=== PATIENT | male | born 1935 | race Caucasian/White ===

== ENCOUNTER → 2019-12-07 | Outpatient (CLI) | payer OTHER ==
[~2019-12-07] MED LIST: TAMS.4ER
== END | disposition home or self-care (01) ==
LOC: PLD 13:05 → LAB SHORT 13:05
DX: D22.5 Melanocytic nevi of trunk (principal)
CPT/HCPCS: 88305

== ENCOUNTER → 2020-06-05 | Outpatient (CLI) | payer OTHER | LOC: LAB SHORT 10:27 → PLD 10:27 | DX: D48.5 Neoplasm of uncertain behavior of skin (principal) | CPT/HCPCS: 88305 ==

== ENCOUNTER 2020-08-31 05:46 | Day surgery (SDC) | payer OTHER ==
[~2020-08-31] VITALS: Ht 188 cm; Wt 84.0 kg
[~2020-08-31 05:46] MED LIST changes: +ALBU90OI INH; +ASPI81CH PO; +ATOR20 PO; +Amlodipine Bes2.5 MG PO; +THYROID30 MG PO
--- NOTE | 2020-08-31 14:14 | NUR ---
REPORT CALLED TO JACKIE REPORT CALLED TO JACKIE. SBAR GIVEN TO TRENT PIEDRA FOR ROOM 4410. TRANSFER PACKET READY FOR TRANSPORT.
--- NOTE | 2020-08-31 14:26 | NUR ---
TRANSFER EDROY TRANSFER TO TAKE PATIENT TO [facility]. R RADIAL SITE CDI-NO HEMATOMA NOTED. VSS. TRANSFER PACKET AND CD SENT WITH EDROY. PT A&OX3 AND DENIED ANY PAIN AT THIS TIME. IV SALINE LOCKED. ALL PATIENTS BELONGING SENT WITH TRANSPORT. SBAR GIVEN TO EDROY TRANSFER.
--- NOTE | 2020-08-31 14:32 | NUR ---
[facility] RIDE HERE, PT TRANSFERRED TO Christine GONZALEZ WRIST ACCESS SITE STABLE, BELONGINGS SENT W PT ALONG WITH CHART FOLDER/DVD.
--- NOTE | 2020-08-31 14:37 | NUR ---
JACKIE NEWMAN RN NOTIFIED PATIENT IN TRANSPORT TO [facility].
== END 2020-08-31 15:28 | disposition short-term general hospital (02) ==
LOC: MHTC 05:46
DX: I25.119 Atherosclerotic heart disease of native coronary artery with unspecified angina pectoris (principal); I10 Essential (primary) hypertension; E78.00 Pure hypercholesterolemia, unspecified; I65.23 Occlusion and stenosis of bilateral carotid arteries; Z95.5 Presence of coronary angioplasty implant and graft; Z95.0 Presence of cardiac pacemaker; Z79.82 Long term (current) use of aspirin
CPT/HCPCS: 76937; 85347; 93005; 93010; 93454; 99152; A9270; C1769; C1894; J1644; J2250; J3010; J7030; J7050; Q9967

== ENCOUNTER → 2021-02-15 | Outpatient (CLI) | payer OTHER | END | disposition home or self-care (01) | LOC: LAB 10:46 → LAB SHORT 10:46 | DX: K12.0 Recurrent oral aphthae (principal) | CPT/HCPCS: 87070; 87205 ==

== ENCOUNTER → 2021-02-18 | Outpatient (CLI) | payer OTHER ==
[2021-02-18 13:47] LABS: BASOPHILS ABSOLUTE AUTO 0.04 K/mm3 (0.00-0.23); BASOPHILS PERCENT AUTO 1 % (0-2); EOSINOPHILS ABSOLUTE AUTO 0.06 K/mm3 (0.00-0.68); EOSINOPHILS PERCENT AUTO 1 % (0-6); Hematocrit 47.4 % (37.0-53.0); IMMATURE GRAN ABSOLUTE AUTO 0.01 K/mm3 (0.00-0.10); IMMATURE GRAN PERCENT AUTO 0 % (0-1); LYMPHOCYTES ABSOLUTE AUTO 2.36 K/mm3 (0.84-5.20); LYMPHOCYTES PERCENT AUTO 32 % (21-46); MONOCYTES ABSOLUTE AUTO 0.63 K/mm3 (0.16-1.47); MONOCYTES PERCENT AUTO 9 % (4-13); Mean Corpuscular HGB 32.8 pg (26.0-34.0); Mean Corpuscular HGB Conc 33.8 g/dL (31.5-36.5); Mean Corpuscular Volume 97 fL (80-100); Mean Platelet Volume 10.9 fL (9.1-12.4); NEUTROPHILS ABSOLUTE AUTO 4.25 K/mm3 (1.96-9.15); NEUTROPHILS PERCENT AUTO 58 % (41-73); Platelet Count 149 K/mm3 (150-400); RDW Coefficient Variation 12.6 % (11.7-14.2); RDW Standard Deviation 45.3 fL (35.1-46.3); Red Blood Cell Count 4.88 M/mm3 (4.30-5.90); White Blood Cell Count 7.35 K/mm3 (4.00-11.30)
[2021-02-18 13:58] LABS: Alanine Aminotransfer (ALT/SGP 22 U/L (12-78); Albumin, Blood 4.1 g/dL (3.4-5.0); Albumin/Globulin Ratio 0.9 (0.8-1.8); Alk Phos 64 U/L (40-126); Anion Gap 9 mmol/L (6-16); Aspartate Aminotrans (AST/SGOT 20 U/L (12-37); Blood Urea Nitrogen 21 mg/dL (8-24); Bun/Creatinine Ratio 18.6 (12.0-20.0); CO2, Blood 30 mmol/L (21-32); Calcium, Blood 9.2 mg/dL (8.5-10.1); Chloride, Blood 99 mmol/L (98-108); Creatinine, Blood 1.13 mg/dL (0.60-1.20); Globulin, Blood 4.4 g/dL (2.2-4.0); Glomerular Filtration Rate >60 (60-); Glucose, Blood 95 mg/dL (70-99); Potassium, Blood 4.4 mmol/L (3.5-5.5); Sodium, Blood 138 mmol/L (136-145); Total Protein, Blood 8.5 g/dL (6.4-8.2)
== END | disposition home or self-care (01) ==
LOC: LAB SHORT 13:43
PROVIDERS: General Practice
DX: R53.81 Other malaise (principal)
CPT/HCPCS: 80053; 85025

== ENCOUNTER 2021-09-05 06:06 | Day surgery (SDC) | payer OTHER ==
[~2021-09-05] VITALS: Ht 188 cm; Wt 83.0 kg
[~2021-09-05 06:06] MED LIST changes: +ATOR40TA PO; -TAMS.4ER; +TAMS.4ER PO; +VITAMIN C 500500 MG PO; +VITAMIN D325 MC3 PO
[2021-09-05] MEDS ORDERED: CLOP75 PO (06:22)
--- NOTE | 2021-09-05 08:35 | NUR ---
PT TO RECOVERY ROOM POST PROCEUDRE. PT AWKAE AND CONVERSING APPROPRIATELY; DENIES PAIN POST PROCEDURE. MONITOR PACED RHYTHM, B/P 161/90, AFEBRILE, SPO2 97% RA. L CHEST-PACEMAKER SITE NO SWELLING/HEMATOMA, TELFA AND TEGADERM DRSG INTACT; PRESSURE DRSG IN PLACE.
--- NOTE | 2021-09-05 08:46 | NUR ---
PATIENT TAKEN TO XRAY DEPARTMENT VIA [facility] FOR PST PACER LEAD IMPLANT IMAGE.
--- NOTE | 2021-09-05 08:55 | NUR ---
PT RETURNED FROM X RAY.
--- NOTE | 2021-09-05 12:10 | NUR ---
DR SALEEM HERE TO EVALUATE PT, PRESSURE DRSG REMOVED-OK TO DISCHARGE PT.
--- NOTE | 2021-09-05 12:45 | NUR ---
PT AMB TO BATHROOM, SITE WITHOUT SWELLING/HEMATOMA; PT'S GAIT STEADY.
--- NOTE | 2021-09-05 12:50 | NUR ---
PT DRESSED WITHOUT ASSITANCE, SITE WITHOUT SWELLING/HEMATOMA, DRSG INTACT; IV REMOVED-CANNULA INTACT. PT'S L ARM PLACED IN SLING.
--- NOTE | 2021-09-05 12:53 | NUR ---
PT RECEIVED DISCHARGE INSTRUCTIONS, MED LIST AND AFTER CARE INSTRUCTIONS; VERBALIZED GOOD UNDERSTANDING. PT LEFT FACILITY VIA W/C, CONDITION STABLE.
== END 2021-09-05 12:53 | disposition home or self-care (01) ==
LOC: MHTC 06:06
DX: Z45.010 Encounter for checking and testing of cardiac pacemaker pulse generator [battery] (principal); T82.190A Other mechanical complication of cardiac electrode, initial encounter; Y71.8 Miscellaneous cardiovascular devices associated with adverse incidents, not elsewhere classified; I25.119 Atherosclerotic heart disease of native coronary artery with unspecified angina pectoris; I10 Essential (primary) hypertension; E78.00 Pure hypercholesterolemia, unspecified; Z95.5 Presence of coronary angioplasty implant and graft
CPT/HCPCS: 33207; 71046; 99152; 99153; C1781; C1785; C1786; C1894; C1898; J0690; J1580; J1644; J2250; J3010; J7030; J7040; Q9967

== ENCOUNTER 2022-05-23 09:32 | Day surgery (SDC) | payer OTHER ==
[~2022-05-23] VITALS: Ht 188 cm; Wt 77.9 kg
[~2022-05-23 09:32] MED LIST changes: +CLOP75 PO
[2022-05-23] MEDS ORDERED: FURO20 (10:23)
[2022-05-23] MEDS ORDERED: NITR.4SL (10:25)
== END 2022-05-23 12:02 | disposition home or self-care (01) ==
LOC: ORSCSDS 09:32
PROVIDERS: Student in an Organized Health Care Education/Training Program
PROC: 0DB68ZX Excision of Stomach, Via Natural or Artificial Opening Endoscopic, Diagnostic (ICD-10-PCS; principal; 2022-05-23 11:00)
PROC: 0DB48ZX Excision of Esophagogastric Junction, Via Natural or Artificial Opening Endoscopic, Diagnostic (ICD-10-PCS; principal; 2022-05-23 11:00)
DX: R10.9 Unspecified abdominal pain (principal); K29.70 Gastritis, unspecified, without bleeding; R11.2 Nausea with vomiting, unspecified; I10 Essential (primary) hypertension; I25.10 Atherosclerotic heart disease of native coronary artery without angina pectoris; G47.33 Obstructive sleep apnea (adult) (pediatric); J44.9 Chronic obstructive pulmonary disease, unspecified; J45.909 Unspecified asthma, uncomplicated; Z85.46 Personal history of malignant neoplasm of prostate; Z79.82 Long term (current) use of aspirin; Z79.899 Other long term (current) drug therapy
CPT/HCPCS: 88305; 88342; A9270; J2704; J7120

== ENCOUNTER → 2022-06-16 | Outpatient (CLI) | payer OTHER ==
[~2022-06-16] MED LIST changes: +FURO20; +NITR.4SL
== END | disposition home or self-care (01) ==
LOC: LAB SHORT 10:57 → LAB 10:57
DX: N39.0 Urinary tract infection, site not specified (principal)
CPT/HCPCS: 87077; 87086; 87186

== ENCOUNTER → 2022-07-10 | Outpatient (CLI) | payer OTHER | LOC: LAB SHORT 14:54 → LAB 14:54 | DX: N39.0 Urinary tract infection, site not specified (principal) | CPT/HCPCS: 87077; 87086; 87186 ==

== ENCOUNTER → 2022-08-09 | Outpatient (CLI) | payer OTHER | END | disposition home or self-care (01) | LOC: LAB 19:27 → LAB SHORT 19:27 | DX: R30.0 Dysuria (principal) | CPT/HCPCS: 87077; 87086; 87186 ==

== ENCOUNTER → 2022-11-21 | Outpatient (CLI) | payer OTHER ==
[2022-11-21 11:01] LABS: Protein, Urine Quantitative 14.4 mg/dL (0.0-11.9)
== END | disposition home or self-care (01) ==
LOC: LAB SHORT 07:05 → LAB FUT 11-20 06:55
PROVIDERS: Internal Medicine Nephrology
DX: N18.30 Chronic kidney disease, stage 3 unspecified (principal); D63.1 Anemia in chronic kidney disease; N25.81 Secondary hyperparathyroidism of renal origin; E55.9 Vitamin D deficiency, unspecified; E78.00 Pure hypercholesterolemia, unspecified; R76.9 Abnormal immunological finding in serum, unspecified; R94.5 Abnormal results of liver function studies; R94.6 Abnormal results of thyroid function studies
CPT/HCPCS: 81050; 82043; 82570; 84156

== ENCOUNTER → 2023-01-08 | Outpatient (CLI) | payer OTHER | END | disposition home or self-care (01) | LOC: LAB 08:30 → LAB SHORT 08:30 | DX: R30.0 Dysuria (principal) | CPT/HCPCS: 87077; 87086; 87186 ==

== ENCOUNTER → 2023-04-03 | Outpatient (CLI) | payer OTHER | END | disposition home or self-care (01) | LOC: LAB SHORT 07:59 → LAB 07:59 | DX: N39.0 Urinary tract infection, site not specified (principal) | CPT/HCPCS: 87077; 87086; 87186 ==

== ENCOUNTER → 2023-05-23 | Outpatient (CLI) | payer OTHER | END | disposition home or self-care (01) | LOC: LAB SHORT 18:08 → LAB 18:08 | DX: N39.0 Urinary tract infection, site not specified (principal) | CPT/HCPCS: 87077; 87086; 87186 ==